=== PATIENT | female | born 1995 | race Caucasian/White ===

== ENCOUNTER 2019-08-14 11:24 | Emergency (ER) | payer OTHER ==
[~2019-08-14] VITALS: Ht 160 cm; Wt 61.6 kg
[~2019-08-14 11:24] MED LIST: IBUP-1542 PO
[2019-08-14 11:34] VITALS: BP 113/65; PULSE 90; RESP 18; Ht 160 cm; Wt 61.6 kg
== END 2019-08-14 15:30 | disposition home or self-care (01) ==
LOC: FTE 11:24
DX: S50.02XA Contusion of left elbow, initial encounter (principal); W23.0XXA Caught, crushed, jammed, or pinched between moving objects, initial encounter; Y92.9 Unspecified place or not applicable
CPT/HCPCS: 73080; 73090; 73110; 81025; Z7502